=== PATIENT | male | born 1940 | race Caucasian/White ===

== ENCOUNTER 2017-05-12 15:25 | Emergency (ER) | payer MEDICARE ==
[2017-05-12] MEDS ORDERED: BUPIVACAINE HCL 0.5 % INJ/PF 30 ML SDV INJ ONE (16:40)
--- NOTE | 2017-05-12 17:15 | RADIOLOGY REPORT (SQ) ---
EXAM DESCRIPTION: FINGER LEFT COMPLETED DATE/TIME: 05/12/2017 4:54 pm REASON FOR STUDY: staple in finger COMPARISON: None. NUMBER OF VIEWS: Three views. TECHNIQUE: AP, lateral, and oblique images acquired of the left 4th finger. LIMITATIONS: None. FINDINGS: MINERALIZATION: Normal. BONES: There is a metal staple that crosses distal interphalangeal joint in appears to be imbedded in the head of the middle phalanx and the base of the distal phalanx. SOFT TISSUES: No soft tissue swelling. No foreign body. OTHER: No other significant finding. IMPRESSION: Metal staple that appears to be imbedded in the bone as described. COMMENT: SITE OF TRAUMA/COMPLAINT MARKED/STAMP COMPLETED: Yes TECHNICAL DOCUMENTATION: JOB ID: [id number] [employer]- All Rights Reserved
[2017-05-12] MEDS ORDERED: SULFAMETHOXAZOLE/TRIMETHOPRIM 800-160 MG TABLET PO ONE (17:22)
[2017-05-12] MEDS ORDERED: DIPH/PERTUSS(ACELL)/TETANUS VAC/PF 0.5 ML SYR (>=10YO) IM ONE (17:22)
--- NOTE | 2017-05-12 17:37 | ER Document Report ---
ED General - General Chief Complaint: Finger Injury Stated Complaint: FINGER INJURY Time Seen by Provider: 05/12/17 16:33 TRAVEL OUTSIDE OF THE [place] IN LAST 30 DAYS: No - HPI Patient complains to provider of: Left ring finger injury Notes: Patient was doing some construction at home when he accidentally placed a construction staple through his left fourth digit. Patient states try to pull the stable at home however due to pain he cannot therefore came to an urgent care that referred him to the ER. Upon my evaluation patient has already had a digital block performed by the docking triage patient states no pain patient had an x-ray performed my interpretation of the x-ray shows a metal body in the fourth digit. Otherwise patient is unaware of his tetanus no other medical problems. - Related Data Allergies/Adverse Reactions: Penicillins Allergy (Verified 05/12/17 16:37) Past Medical History - Social History Smoking Status: Unknown if Ever Smoked Family History: Reviewed & Not Pertinent Patient has suicidal ideation: No Renal/ Medical History: Denies: Hx Peritoneal Dialysis Review of Systems - Review of Systems Constitutional: No symptoms reported EENT: No symptoms reported Cardiovascular: No symptoms reported Respiratory: No symptoms reported Gastrointestinal: No symptoms reported Genitourinary: No symptoms reported Male Genitourinary: No symptoms reported Musculoskeletal: Other - Staple in left fourth digit Skin: No symptoms reported Hematologic/Lymphatic: No symptoms reported Neurological/Psychological: No symptoms reported Physical Exam - Vital signs Vitals: Temp Pulse Resp BP Pulse Ox 98.6 F 82 16 116/79 97 05/12/17 15:51 05/12/17 15:51 05/12/17 15:51 05/12/17 15:51 05/12/17 15:51 Interpretation: Normal - General General appearance: Appears well, Alert - HEENT Head: Normocephalic, Atraumatic Eyes: Normal Pupils: PERRL - Respiratory Respiratory status: No respiratory distress Chest status: Nontender Breath sounds: Normal Chest palpation: Normal - Cardiovascular Rhythm: Regular Heart sounds: Normal auscultation Murmur: No - Abdominal Inspection: Normal Distension: No distension Bowel sounds: Normal Tenderness: Nontender Organomegaly: No organomegaly - Back Back: Normal, Nontender - Extremities General upper extremity: Nontender, Normal color, Normal ROM, Normal temperature. No: Normal inspection - Staple and left fourth digit General lower extremity: Normal inspection, Nontender, Normal color, Normal ROM , Normal temperature, Normal weight bearing. No: Colton's sign - Neurological Neuro grossly intact: Yes Cognition: Normal Orientation: AAOx4 Mari Coma Scale Eye Opening: Spontaneous Mari Coma Scale Verbal: Oriented Hilliards Coma Scale Motor: Obeys Commands Mari Coma Scale Total: 15 Speech: Normal Motor strength normal: LUE, RUE, LLE, RLE Sensory: Normal - Psychological Associated symptoms: Normal affect, Normal mood - Skin Skin Temperature: Warm Skin Moisture: Dry Skin Color: Normal Course - Re-evaluation Re-evalutation: 05/12/17 21:09 The area was cleaned with ChloraPrep and the staple was removed with a pair of pliers with ease due to the ease of the removal do not think that the staple was in any bone will continue to cover for infection with Bactrim patient's tetanus was up-to-date patient was discharged home neurovascularly intact after removal - Vital Signs Vital signs: Temp Pulse Resp BP Pulse Ox 97.6 F 74 16 117/73 100 05/12/17 17:42 05/12/17 17:42 05/12/17 17:42 05/12/17 17:42 05/12/17 17:42 Procedures - Additional Procedures Removal of staple Notes: 05/12/17 21:09 Patient already underwent a digital block in triage patient pain was under control for plate was applied to the wound staple was removed with a pair of pliers the wound was then again cleansed with ChloraPrep. Wound dressed patient had good capillary refill Discharge - Discharge Clinical Impression: Finger injury Qualifiers: Encounter type: initial encounter Laterality: left Qualified Code(s): S69.92XA - Unspecified injury of left wrist, hand and finger(s), initial encounter Condition: Good Disposition: HOME, SELF-CARE Instructions: Puncture Wound ([facility]), Tetanus Immunization Given ([facility]) Additional Instructions: Continue to monitor the injury continue to keep the injury clean with soap and water. Take antibiotics as prescribed return to ER symptoms worsen Prescriptions: Sulfamethoxazole/Trimethoprim [Bactrim Ds Tablet] 1 each PO BID #10 tablet Forms: Return to Work Referrals: SUDHA LAM NP [Primary Care Provider] - Follow up as needed
[2017-05-12 17:48] VITALS: BP 117/73
== END 2017-05-12 17:45 | disposition home or self-care (01) ==
LOC: ER 15:25
PROC: 3E0T3BZ Introduction of Anesthetic Agent into Peripheral Nerves and Plexi, Percutaneous Approach (ICD-10-PCS; principal; 2017-05-12)
DX: S61.245A Puncture wound with foreign body of left ring finger without damage to nail, initial encounter (principal); W27.8XXA Contact with other nonpowered hand tool, initial encounter; Y93.H3 Activity, building and construction; Y92.009 Unspecified place in unspecified non-institutional (private) residence as the place of occurrence of the external cause; Z88.0 Allergy status to penicillin; Z23 Encounter for immunization
CPT/HCPCS: 99283; 90471; 73140; 90715; 64450; A9270